=== PATIENT | male | born 1980 | race Caucasian/White ===

== ENCOUNTER 2017-08-22 07:16 | Day surgery (SDC) | payer BC ==
[2017-08-16 11:14] VITALS: BMI 28.0
[2017-08-22] MEDS ORDERED: PROPOFOL 20 ML ONE ×2 (07:21)
[2017-08-22] MEDS ORDERED: LIDOCAINE HCL/PF 2% SDV 5ML VIAL ONE (07:24)
[2017-08-22 07:32] VITALS: TEMP 97.7
[2017-08-22 09:40] VITALS: BP 112/60; PULSE 66
== END 2017-08-22 09:30 | disposition home or self-care (01) ==
LOC: FASU-ENDO 07:16
PROVIDERS: ATTEND Internal Medicine Gastroenterology
PROC: 0DJD8ZZ Inspection of Lower Intestinal Tract, Via Natural or Artificial Opening Endoscopic (ICD-10-PCS; principal; 2017-08-22 08:24)
DX: K62.5 Hemorrhage of anus and rectum (principal); K64.4 Residual hemorrhoidal skin tags